=== PATIENT | female | born 1960 | race Caucasian/White ===

== ENCOUNTER 2017-01-12 15:07 | Emergency (ER) | payer BC ==
[~2017-01-12] VITALS: Ht 167.6 cm; Wt 75.0 kg
[~2017-01-12 15:07] MED LIST: ASPIRIN E.C.81 M1 PO; Advil,Nuprin,Motrin PO; FERROUS SULFATE PO; Glucophage PO; TYLENOL WITH C1 EACH PO; Zestril,Prinivil PO
[2017-01-12 16:18] LABS: HEMATOCRIT 39.8 % (36.0-46.0); MCH 31.4 PG (29.0-34.0); MCHC 34.2 G/DL (30.0-36.0); MCV 91.9 FL (83-99); MEAN PLAT.VOLUME 11.3 uM^3 (9.5-12.4); PLATELET COUNT 275 K/uL (156-360); RBC DIS.WIDTH-CV 12.1 % (11.8-14.6); RBC DIS.WIDTH-SD 41.1 % (39-53); RED BLOOD COUNT 4.33 M/uL (3.80-5.20); WHITE BLOOD COUNT 6.6 K/uL (4.1-10.2)
[2017-01-12 16:26] LABS: CHLORIDE 105 mEq/L (99-109); POTASSIUM 4.7 mEq/L (3.7-5.4); SODIUM 140 mEq/L (136-147)
[2017-01-12 16:28] LABS: GLUCOSE 121 mg/dL (70-99)
[2017-01-12 16:30] LABS: ANION GAP 11 MEQ/L (2-14)
[2017-01-12 16:32] LABS: ALKALINE PHOSPHATASE 81 IU/L (3-129); GFR ESTIMATE (CALCULATED) > 59 mL/min/
[2017-01-12 16:33] LABS: UREA NITROGEN (BUN) 14 mg/dL (9-23)
[2017-01-12 16:36] LABS: LIPASE 19 U/L (1.0-51.0)
[2017-01-12 18:06] LABS: TROP-I INTERPRETATION NEGATIVE; TROPONIN-I < 0.01 ng/mL (0.0-0.30)
[2017-01-12 18:38] LABS: ADD MIUA? NO; BILIRUBIN NEGATIVE; BLOOD NEGATIVE; COLOR YELLOW ((YELLOW)); GLUCOSE (STRIP) NEGATIVE; KETONES NEGATIVE; LEUKOCYTES NEGATIVE; NITRITE NEGATIVE; PROTEIN (STRIP) NEGATIVE; UCUL ADDED? NO; UROBILINOGEN 0.2 MG/DL (0.2-1.0)
[2017-01-12] MEDS ORDERED: ZOFRAN ODT4 MG PO (19:25)
[2017-01-12] MEDS ORDERED: FLOMAX0.4 MG PO (19:25)
[2017-01-12 19:42] VITALS: BP 128/82
== END 2017-01-12 19:43 | disposition home or self-care (01) ==
LOC: EME 15:07
DX: K59.00 Constipation, unspecified (principal); N20.0 Calculus of kidney; R10.13 Epigastric pain; R07.81 Pleurodynia; Z98.84 Bariatric surgery status; I10 Essential (primary) hypertension; E11.9 Type 2 diabetes mellitus without complications; Z79.84 Long term (current) use of oral hypoglycemic drugs; Z79.82 Long term (current) use of aspirin
CPT/HCPCS: 71020; 74177; 80053; 81003; 83690; 84484; 85027; 93005; 99281; 99285; J7030